=== PATIENT | female | born 1945 ===

== ENCOUNTER 2018-03-18 10:29 | Day surgery (SDC) | payer MEDICARE ==
[2018-03-17 13:51] VITALS: BMI 19.3
[2018-03-18] MEDS ORDERED: Propofol 10 mg/ml Inj (20 ML) ONE ×2 (13:53)
[2018-03-18] MEDS ORDERED: Lactated Ringer's 500 ML IV ONE (13:54)
[2018-03-18 14:04] VITALS: O2SAT 100
[2018-03-18 14:38] VITALS: TEMP 98.5
[2018-03-18 15:52] VITALS: BP 128/75; PULSE 82; RESP 20
== END 2018-03-18 15:45 | disposition home or self-care (01) ==
LOC: C.ENDO 10:29
PROVIDERS: ATTEND Internal Medicine Gastroenterology
DX: Z12.11 Encounter for screening for malignant neoplasm of colon (principal); K57.30 Diverticulosis of large intestine without perforation or abscess without bleeding; K64.8 Other hemorrhoids
CPT/HCPCS: 44388; J2704; J7120

== ENCOUNTER 2018-09-21 14:13 | Emergency (ER) | payer MEDICAID, MEDICARE ==
[2018-09-21 14:13] VITALS: BMI 19.3
[2018-09-21 14:20] VITALS: TEMP 98.7
--- NOTE | 2018-09-21 15:49 | RAD ---
Date of service: 09/21/2018 PROCEDURE: Right Knee Radiographs. HISTORY: pain and swelling COMPARISON: None. TECHNIQUE: Three views obtained. FINDINGS: BONES: No fracture or lytic lesion. Spurring present especially along the lateral knee joint line JOINTS: Arthrosis lateral femoral tibial compartment most notably affected. JOINT EFFUSION: None. OTHER FINDINGS: quadriceps insertional enthesophyte. Well corticated ossification projects over the posterior tibial plateau could be osteophytes pedunculated or near attached loose bodies. IMPRESSION: No fracture or lytic lesion. Arthrosis
--- NOTE | 2018-09-21 15:58 | C.PDOC ---
History Of Present Illness 73 year old female, hx of early dementia, brought in by grandson for evaluation of pain and swelling to right knee. Patient has not taken medications for pain and is able to ambulate without difficulty. No known trauma or fever/chills. Time Seen by Provider: 09/21/18 14:32 Chief Complaint (Nursing): Lower Extremity Problem/Injury History Per: Patient History/Exam Limitations: no limitations Current Symptoms Are (Timing): Still Present Recent travel outside of the [place]: No Additional History Per: Patient Past Medical History Reviewed: Historical Data, Nursing Documentation, Vital Signs Vital Signs: Last Vital Signs Temp 98.7 F 09/21/18 14:15 Pulse 80 09/21/18 14:15 Resp 20 09/21/18 14:15 BP 109/79 09/21/18 14:15 Pulse Ox 96 09/21/18 14:15 - Medical History PMH: No Chronic Diseases, Dementia (FORGETFUL OCCASSIONALLY PER SON) Denies: Colonic Polyps, Fractures, Chronic Kidney Disease, Sleep Apnea, TIA Surgical History: No Surg Hx Denies: Endoscopy Family History: States: Unknown Family Hx - Social History Hx Alcohol Use: Yes Hx Substance Use: No - Immunization History Hx Tetanus Toxoid Vaccination: No Hx Influenza Vaccination: No Hx Pneumococcal Vaccination: No Review Of Systems Constitutional: Negative for: Fever, Chills Musculoskeletal: Positive for: Leg Pain (right knee pain and swelling) Physical Exam - Physical Exam Appears: Non-toxic, No Acute Distress Skin: Warm, Dry Head: Atraumatic, Normacephalic Eye(s): bilateral: Normal Inspection Extremity: Normal ROM (bilateral knees), Tenderness (Right knee proximal lateral swelling and mild tenderness. No calf tenderness bilaterally), No Pedal Edema (bilaterally), No Other (Warmth or redness to right knee. pt ambulates without limp) Pulses: Left Dorsalis Pedis: Normal, Right Dorsalis Pedis: Normal Neurological/Psych: Other (alert and oriented) ED Course And Treatment O2 Sat by Pulse Oximetry: 96 (on RA) Pulse Ox Interpretation: Normal - Other Rad Xray Rt Knee X-Ray: Viewed By Me, Read By Radiologist Interpretation: IMPRESSION: No fracture or lytic lesion. Arthrosis Medical Decision Making Medical Decision Making: Plan: Xray Rt Knee Tylenol 650mg PO Philip Bandage Disposition Counseled Patient/Family Regarding: Studies Performed, Diagnosis, Need For Followup, Rx Given - Disposition Referrals: Ryder Martell MD [Staff Provider] - Alfred Longoria III, MD [Staff Provider] - Disposition: HOME/ ROUTINE Disposition Time: 15:56 Condition: GOOD Additional Instructions: Use nicholas venda PHILIP para apoyarse en la rodilla cuando est despierto. . Compresas fras a rodilla varias veces al da. Seguimiento con mdico de cabecera y ortopedista. Tylenol para el dolor. Wear PHILIP bandage for support to knee when awake. . Cold compresses to knee several times a day. Follow up with primary care doctor and orthopedist. Tylenol for pain. Prescriptions: Acetaminophen [Tylenol 325mg tab] 650 mg PO Q6 #30 tab Instructions: Osteoarthritis (DC) Forms: Gen Discharge Inst Citizen Of [place], [facility] (Citizen [place]) Print Language: LATVIAN - Clinical Impression Clinical Impression: Knee pain, Arthritis - PA / ANIMAL HANDLER / Resident Statement MD/DO has reviewed & agrees with the documentation as recorded. - Scribe Statement The provider has reviewed the documentation as recorded by the Nohemi Banegas All medical record entries made by the Nohemi were at my direction and personally dictated by me. I have reviewed the chart and agree that the record accurately reflects my personal performance of the history, physical exam, medical decision making, and the department course for this patient. I have also personally directed, reviewed, and agree with the discharge instructions and disposition.
[2018-09-21 16:23] VITALS: BP 125/72; PULSE 68; RESP 18
[2018-09-21 19:13] VITALS: O2SAT 96
== END 2018-09-21 16:23 | disposition home or self-care (01) ==
LOC: C.ER 14:13
DX: M17.11 Unilateral primary osteoarthritis, right knee (principal); M25.561 Pain in right knee